=== PATIENT | male | born 1995 ===

== ENCOUNTER 2016-10-20 10:49 | Emergency (ER) | payer OTHER ==
[~2016-10-20] VITALS: Ht 175.3 cm; Wt 68.2 kg
[2016-10-20 10:57] VITALS: TEMP 36.6; Ht 175.3 cm; Wt 68.2 kg
[2016-10-20] MEDS ORDERED: CEPH500C PO (11:25)
[2016-10-20 11:34] VITALS: BP 104/76; PULSE 98; O2SAT 100
--- NOTE | 2016-10-20 11:35 | EMERGENCY ROOM VISIT NOTE ---
History First contact with patient: 11:02 Chief Complaint: EYE PAIN Stated Complaint: SWOLLEN EYE, IRRITATION History of Present Illness The patient is a 21 year old male who presents to the Emergency Room with complaints of bruising and swelling of the right eye. The patient first noticed the bruising 2 days ago, and developed swelling last evening. The patient denies any injury to the eye, or blurred vision. He denies any significant discomfort or pain with movement of the eye. He has had no drainage from the eye. The patient does wear contacts. He rates his discomfort a 2 out of 10. Review of Systems 10 system review was performed and was negative except for pertinent positives and negatives as indicated in history of present illness Past Medical/Surgical History Medical Problems: (1) Asthma (2) Back strain (3) Back strain (4) Hx of bronchitis Family History Diabetes mellitus Social History Smoking Status: Current Every Day Smoker Alcohol Use: none Drug Use: none Marital Status: single Housing Status: lives with roommate Occupation Status: [employer] student Current/Historical Medications Scheduled Cephalexin Monohydrate (Keflex), 500 MG PO QID Allergies Coded Allergies: No Known Allergies (Unverified , 05/31/16) Physical Exam Vital Signs Date Time Temp Pulse Resp B/P Pulse Ox O2 Delivery O2 Flow Rate FiO2 10/20/16 10:57 36.6 72 18 102/62 97 Room Air Right Eye Acuity: 20/30 Left Eye Acuity: 20/20 Physical Exam CONSTITUTIONAL: Healthy and well nourished. Alert and oriented X 3 with positive affect. She does not appear in any acute distress. HEENT: Examination shows mild edema of the upper eyelid, and minimal erythema. I am unable to visualize any hordeolum. There is no conjunctival injection, mucopurulent drainage or crusting. Pupils equal, round and reactive. EOMs intact without discomfort or evidence for entrapment. No tenderness to palpation of the orbital rim. Ears and nares are clear. OROPHARYNX: No posterior pharyngeal erythema, tonsillar hypertrophy, postnasal drip or exudates. NECK: Full active range of motion without discomfort. RESPIRATORY: Clear to auscultation bilaterally with no wheezing, crackles, rhonchi or stridor. CARDIOVASCULAR: Regular rate and rhythm with no murmurs, rubs or gallops. INTEGUMENTARY: No rash or other significant dermatologic conditions noted. NEUROLOGIC: No focal neurologic deficits noted. Facial sensations are intact. Medical Decision & Procedures ED Course Patient history and physical exam were performed. Nurse's notes were reviewed. A stolen history and clinical exam findings, I did suggest covering the patient with an antibiotic in case this is a cellulitis. The patient was provided a prescription for Keflex. He was encouraged to intermittently apply warm moist compresses to the eye. Refrain from contact lens use. Ibuprofen or Tylenol as needed for pain. Return to the emergency department for any progressively worsening redness, swelling, pain or fever. The patient was happy with plan care, voiced understanding of all discharge instructions, and denied any significant discomfort at the time of discharge. Impression Primary Impression: Facial cellulitis Departure Information Dispostion Home / Self-Care Prescriptions Cephalexin Monohydrate (Keflex) 500 Mg Cap 500 MG PO QID for 7 Days, #28 CAP Prov: Long Chavez PA 10/20/16 Forms HOME CARE DOCUMENTATION FORM, IMPORTANT VISIT INFORMATION Patient Instructions [facility] Additional Instructions Intermittently apply moist heat to eye. Ibuprofen 800 mg and/or Tylenol 1000 mg every 8 hours. You may also alternate these medications for more effective pain relief: Ibuprofen --4 HRS--> Tylenol --4 HRS--> ibuprofen --4 HRS--> Tylenol .... Complete all Keflex antibiotics as prescribed. Return for any progressively worsening redness, swelling, pain or fever.
== END 2016-10-20 11:36 | disposition home or self-care (01) ==
LOC: C.EDB 10:50 → C.EDD 11:36
DX: L03.211 Cellulitis of face (principal); H57.11 Ocular pain, right eye; F17.210 Nicotine dependence, cigarettes, uncomplicated